=== PATIENT | male | born 1955 | race Caucasian/White ===

== ENCOUNTER 2022-09-19 14:39 | Outpatient (CLI) | payer MEDICARE | END 2022-09-19 14:40 | disposition home or self-care (01) | LOC: CSHMRI 14:39 | PROVIDERS: ATTEND Neurological Surgery | DX: M47.12 Other spondylosis with myelopathy, cervical region (principal); M47.812 Spondylosis without myelopathy or radiculopathy, cervical region | CPT/HCPCS: 72141 ==